=== PATIENT | female | born 1965 | race Caucasian/White ===

== ENCOUNTER 2018-06-07 09:27 | Outpatient (CLI) | payer OTHER | END 2018-06-07 09:40 | disposition home or self-care (01) | LOC: MAMO-SONO 09:27 | DX: Z12.31 Encounter for screening mammogram for malignant neoplasm of breast (principal); Z87.898 Personal history of other specified conditions; E03.8 Other specified hypothyroidism; E04.2 Nontoxic multinodular goiter ==

== ENCOUNTER 2019-01-11 09:36 | Outpatient (CLI) | payer OTHER | END 2019-01-11 09:42 | disposition home or self-care (01) | LOC: EKG 09:36 | DX: I10 Essential (primary) hypertension (principal) ==

== ENCOUNTER 2019-05-25 07:50 | Outpatient (CLI) | payer OTHER | END 2019-05-25 07:54 | disposition home or self-care (01) | LOC: NUCLEAR 07:50 | DX: R07.89 Other chest pain (principal); I10 Essential (primary) hypertension ==

== ENCOUNTER 2021-01-16 10:02 | Outpatient (CLI) | payer OTHER | END 2021-01-16 10:12 | disposition home or self-care (01) | LOC: MAMO-SONO 10:02 | PROVIDERS: ATTEND Internal Medicine Cardiovascular Disease | DX: N63.11 Unspecified lump in the right breast, upper outer quadrant (principal); Z12.31 Encounter for screening mammogram for malignant neoplasm of breast ==

== ENCOUNTER 2021-02-06 10:53 | Outpatient (CLI) | payer OTHER | END 2021-02-06 11:32 | disposition home or self-care (01) | LOC: SONOGRAMA 10:53 | PROVIDERS: ATTEND Surgery | DX: D24.2 Benign neoplasm of left breast (principal); N60.11 Diffuse cystic mastopathy of right breast; N60.12 Diffuse cystic mastopathy of left breast; R92.0 Mammographic microcalcification found on diagnostic imaging of breast ==

== ENCOUNTER → 2023-07-07 10:41 | Outpatient (CLI) | payer OTHER | END | disposition home or self-care (01) | LOC: NUCLEAR 09:45 | PROVIDERS: ATTEND Internal Medicine Cardiovascular Disease | DX: M19.90 Unspecified osteoarthritis, unspecified site (principal); M46.47 Discitis, unspecified, lumbosacral region; M10.9 Gout, unspecified | CPT/HCPCS: 78315; A9503 ==